=== PATIENT | female | born 1935 | race Caucasian/White ===

== ENCOUNTER → 2018-10-21 | Outpatient (CLI) | payer MEDICARE ==
[2018-10-20 10:20] VITALS: BP 149/59
[~2018-10-21] MED LIST: BENADRYL; CALCIUM + D3 E1 EACH PO; DAIRY AID3000 UNIT PO; FLONASE ALLERG9.9 ML NS; FOSAMAX 70MG TA70 MG PO; HCTZ 25MG25 MG PO; METOPROLOL TAR100 M1 PO; MICARDIS20 MG PO; PLENDIL 5MG TAB5 MG PO; TYLENOL EXTRA500 M2 PO; VITAMIN D 1001000 IU PO; ZETIA10 M1 PO
[2018-10-21 10:41] LABS: HEMATOCRIT 38.2 % (37.0-47.0); HEMOGLOBIN 12.7 g/dL (12.5-16.0); MEAN PLATELET VOLUME 8.9 fl (7.4-10.4); RED BLOOD COUNT 4.21 M/mm3 (4.10-5.30); RED CELL DISTRIBUTION WIDTH 13.7 % (11.5-14.5); WHITE BLOOD COUNT 4.6 K/mm3 (4.8-10.8)
[2018-10-21 11:04] LABS: CALCIUM 10.1 mg/dL (8.4-10.2); POTASSIUM 4.3 mmol/L (3.6-5.0)
== END ==
LOC: LAB 10:26
PROVIDERS: Family Medicine
DX: M86.672 Other chronic osteomyelitis, left ankle and foot (principal); B99.9 Unspecified infectious disease

== ENCOUNTER → 2018-10-28 | Outpatient (CLI) | payer MEDICARE ==
[2018-10-27 10:20] VITALS: BP 155/90
[2018-10-28 11:00] LABS: HEMATOCRIT 39.1 % (37.0-47.0); HEMOGLOBIN 12.7 g/dL (12.5-16.0); MEAN PLATELET VOLUME 8.9 fl (7.4-10.4); RED BLOOD COUNT 4.26 M/mm3 (4.10-5.30)
[2018-10-28 11:12] LABS: CALCIUM 9.9 mg/dL (8.4-10.2); POTASSIUM 4.4 mmol/L (3.6-5.0)
== END ==
LOC: LAB 10:05
PROVIDERS: Family Medicine
DX: M86.672 Other chronic osteomyelitis, left ankle and foot (principal); B99.9 Unspecified infectious disease

== ENCOUNTER → 2018-11-04 | Outpatient (CLI) | payer MEDICARE ==
[2018-11-03 10:08] VITALS: BP 125/54
[2018-11-04 10:36] LABS: CALCIUM 9.8 mg/dL (8.4-10.2); POTASSIUM 3.3 mmol/L (3.6-5.0)
[2018-11-04 10:47] LABS: HEMATOCRIT 37.8 % (37.0-47.0); HEMOGLOBIN 12.3 g/dL (12.5-16.0); MEAN PLATELET VOLUME 8.7 fl (7.4-10.4); RED BLOOD COUNT 4.14 M/mm3 (4.10-5.30); RED CELL DISTRIBUTION WIDTH 14.3 % (11.5-14.5)
== END ==
LOC: LAB 10:01
PROVIDERS: Family Medicine
DX: M86.672 Other chronic osteomyelitis, left ankle and foot (principal)

== ENCOUNTER → 2018-11-11 | Outpatient (CLI) | payer MEDICARE ==
[2018-11-10 09:54] VITALS: BP 127/51
[2018-11-11 11:04] LABS: HEMATOCRIT 40.6 % (37.0-47.0); HEMOGLOBIN 13.2 g/dL (12.5-16.0); MEAN PLATELET VOLUME 8.8 fl (7.4-10.4); RED BLOOD COUNT 4.47 M/mm3 (4.10-5.30); RED CELL DISTRIBUTION WIDTH 14.1 % (11.5-14.5); WHITE BLOOD COUNT 4.2 K/mm3 (4.8-10.8)
[2018-11-11 11:09] LABS: CALCIUM 10.2 mg/dL (8.4-10.2); POTASSIUM 3.5 mmol/L (3.6-5.0)
== END ==
LOC: LAB 10:01
PROVIDERS: Family Medicine
DX: M86.672 Other chronic osteomyelitis, left ankle and foot (principal)

== ENCOUNTER → 2018-11-18 | Outpatient (CLI) | payer MEDICARE ==
[2018-11-17 11:38] VITALS: BP 132/56
[2018-11-18 10:41] LABS: HEMATOCRIT 37.2 % (37.0-47.0); HEMOGLOBIN 12.3 g/dL (12.5-16.0); MEAN PLATELET VOLUME 8.9 fl (7.4-10.4); RED BLOOD COUNT 4.16 M/mm3 (4.10-5.30); RED CELL DISTRIBUTION WIDTH 13.8 % (11.5-14.5)
[2018-11-18 11:08] LABS: POTASSIUM 3.7 mmol/L (3.6-5.0)
== END ==
LOC: LAB 09:55
PROVIDERS: Family Medicine
DX: M86.672 Other chronic osteomyelitis, left ankle and foot (principal); B99.9 Unspecified infectious disease

== ENCOUNTER → 2018-11-25 | Outpatient (CLI) | payer MEDICARE ==
[2018-11-24 09:20] VITALS: BP 133/61
[2018-11-25 11:24] LABS: HEMATOCRIT 39.1 % (37.0-47.0); HEMOGLOBIN 12.8 g/dL (12.5-16.0); MEAN PLATELET VOLUME 8.9 fl (7.4-10.4); RED BLOOD COUNT 4.32 M/mm3 (4.10-5.30); RED CELL DISTRIBUTION WIDTH 14.3 % (11.5-14.5); WHITE BLOOD COUNT 3.5 K/mm3 (4.8-10.8)
[2018-11-25 11:29] LABS: CALCIUM 10.2 mg/dL (8.4-10.2); POTASSIUM 3.6 mmol/L (3.6-5.0)
== END ==
LOC: LAB 10:02
PROVIDERS: Family Medicine
DX: M86.672 Other chronic osteomyelitis, left ankle and foot (principal); B99.9 Unspecified infectious disease

== ENCOUNTER 2018-11-28 09:30 | Outpatient (RCR) | payer MEDICARE ==
[2018-10-19 10:26] VITALS: BP 157/92
[2018-10-19 11:05] VITALS: BP 124/68
[2018-10-20 10:04] VITALS: BP 149/59
[2018-10-20 10:20] VITALS: BP 149/59
[2018-10-21 10:30] VITALS: BP 137/55
--- NOTE | 2018-10-21 10:45 | NUR ---
Pt states they will arrive early on 10/23/18 at 0900 for her antibiotic as have other commitment that day.
[2018-10-21 10:50] VITALS: BP 129/62
[2018-10-22 10:09] VITALS: BP 118/43
[2018-10-23 09:07] VITALS: BP 125/51
[2018-10-24 09:29] VITALS: BP 120/46
[2018-10-25 10:23] VITALS: BP 139/58
[2018-10-26 10:12] VITALS: BP 122/50
[2018-10-26 10:13] VITALS: BP 122/50
[2018-10-27 10:08] VITALS: BP 155/90
[2018-10-27 10:20] VITALS: BP 155/90
[2018-10-28 10:10] VITALS: BP 137/61
[2018-10-29 10:01] VITALS: BP 121/45
[2018-10-30 10:23] VITALS: BP 120/49
[2018-10-31 09:45] VITALS: BP 106/46
[2018-11-01 10:12] VITALS: BP 121/50
[2018-11-02 10:24] VITALS: BP 143/56
[2018-11-03 10:08] VITALS: BP 125/54
[2018-11-04 10:15] VITALS: BP 116/53
[2018-11-05 10:00] VITALS: BP 104/46
[2018-11-06 08:55] VITALS: BP 117/58
[2018-11-07 10:09] VITALS: BP 125/56
--- NOTE | 2018-11-07 10:17 | NUR ---
PATIENT REPORTS NO NEW ORDERS FROM HER VISIT WITH DR BONILLA. SHE IS DONE WITH HER ORAL ANTIBIOTIC.
[2018-11-08 09:57] VITALS: BP 107/58
[2018-11-09 10:03] VITALS: BP 146/75
[2018-11-10 09:54] VITALS: BP 127/51
[2018-11-11 10:19] VITALS: BP 141/53
[2018-11-12 10:10] VITALS: BP 122/53
[2018-11-13 10:03] VITALS: BP 129/51
[2018-11-14 11:50] VITALS: BP 126/46
[2018-11-15 09:00] VITALS: BP 142/61
[2018-11-16 09:53] VITALS: BP 148/50
[2018-11-17 11:38] VITALS: BP 132/56
[2018-11-18 10:15] VITALS: BP 137/59
[2018-11-19 10:03] VITALS: BP 120/62
[2018-11-20 10:06] VITALS: BP 134/62
[2018-11-21 10:33] VITALS: BP 135/52
[2018-11-22 10:16] VITALS: BP 131/61
[2018-11-23 10:12] VITALS: BP 127/60
[2018-11-24 09:20] VITALS: BP 133/61
[2018-11-25 10:20] VITALS: BP 136/52
[2018-11-26 10:10] VITALS: BP 121/53
[2018-11-27 08:50] VITALS: BP 135/60
[~2018-11-28] VITALS: Ht 162.6 cm; Wt 68.6 kg
[2018-11-28 09:42] VITALS: BP 162/91
== END 2018-11-29 08:00 | disposition home or self-care (01) ==
LOC: AMSURD 09:30
DX: M86.672 Other chronic osteomyelitis, left ankle and foot (principal)
CPT/HCPCS: J0696

== ENCOUNTER → 2022-07-04 | Outpatient (CLI) | payer MEDICARE, BC | LOC: RAD 10:53 | DX: N28.1 Cyst of kidney, acquired (principal); N20.0 Calculus of kidney; Z96.0 Presence of urogenital implants ==